=== PATIENT | female | born 1975 | race Asian ===

== ENCOUNTER 2021-12-16 21:17 | Emergency (ER) | payer OTHER ==
[~2021-12-16] VITALS: Ht 149.9 cm; Wt 60.6 kg
--- NOTE | 2021-12-16 21:20 | PHYS DOC ---
General Adult HPI: HPI: ".. I was cutting... up herbs for some chicken soup... Lemon grass.. about 10 other... it a chicken soup used for women after so they can get strong again.. and got my Lt thumb..." Patient is a 46 year old female originally from [facility].. who presents with above hx and complaints of laceration of left thumb. [place] been [place]. Patient does not remember her last tetanus. Patient has caused a 3 cm C-shaped flap on the dorsal side of left thumb. Extensor tendon is exposed. But appears to be functioning. Distal sensation appears to be intact. Patient is right-hand dominant. Patient is normally healthy for vaccinations. No recent travel. Pt. follows with Adam Zamora. Patient [id number] Review of Systems: Review of Systems: Constitutional: Denies fever or chills Eyes: Denies change in visual acuity HENT: Denies nasal congestion or sore throat Respiratory: Denies cough or shortness of breath Cardiovascular: Denies chest pain or edema GI: Denies abdominal pain, nausea, vomiting, bloody stools or diarrhea : Denies dysuria Musculoskeletal: Denies back pain or joint pain Integument: Denies rash, complains of laceration left thumb Neurologic: Denies headache, focal weakness or sensory changes Endocrine: Denies polyuria or polydipsia Lymphatic: Denies swollen glands Psychiatric: Denies depression or anxiety Family History: Family History: Noncontributory to presentation Current Medications: Current Meds: See nursing for home meds Allergies: Allergies: No known drug allergies Physical Exam: PE: Constitutional: Well developed, well nourished, no acute distress, non-toxic appearance. [] HENT: Normocephalic, atraumatic, bilateral external ears normal, oropharynx moist, no oral exudates, nose normal. [] Eyes: PERRLA, EOMI, conjunctiva normal, no discharge. [] Neck: Normal range of motion, no tenderness, supple, no stridor. [] Cardiovascular:Heart rate regular rhythm, no murmur [] Lungs & Thorax: Bilateral breath sounds clear to auscultation [] Abdomen: Bowel sounds normal, soft, no tenderness, no masses, no pulsatile masses. [] Skin: Warm, dry, no erythema, no rash. [] Laceration left thumb as per HPI Back: No tenderness, no CVA tenderness. [] Extremities: No tenderness, no cyanosis, no clubbing, ROM intact, no edema. [] Neurologic: Alert and oriented X 3, normal motor function, normal sensory function, no focal deficits noted. [] Psychologic: Affect normal, judgement normal, mood normal. [] EKG: EKG: [] Radiology/Procedures: Radiology/Procedures: [] Heart Score: C/O Chest Pain: N/A Risk Factors: Risk Factors: DM, Current or recent (<one month) smoker, HTN, HLP, family histo ry of CAD, obesity. Risk Scores: Score 0 - 3: 2.5% MACE over next 6 weeks - Discharge Home Score 4 - 6: 20.3% MACE over next 6 weeks - Admit for Clinical Observation Score 7 - 10: 72.7% MACE over next 6 weeks - Early Invasive Strategies Course & Med Decision Making: Course & Med Decision Making Pertinent Labs and Imaging studies reviewed. (See chart for details) Procedure note-3 cm flap laceration left thumb-thumb cleaned with normal saline. Betadine applied. Injected them with 2% lidocaine along suture line as well as thumb base.. Irrigated laceration range of motion. Normal saline. Closed laceration with 8 simple-4 0 Vicryl sutures. Antibiotic ointment applied. Dressing applied. Patient keep laceration clean and dry. May wear current dressing for 3 days if it does not get wet. Follow-up primary care. If dressing comes wet must remove dressing immediately. Once this dressing is removed apply Polysporin 4 times a day until sutures fall out. Take Keflex 500 mg 3 times a day.x 7 days after completing Keflex take Diflucan 100 mg daily for 3 days. Monitor closely for infection. Follow-up primary care. Return if any concerns. Patient warned that flap skin tear somewhat avascular may l have lost of tissue. Impression: 1. Accidental laceration left thumb-3 cm flap laceration [] Dragon Disclaimer: Dragon Disclaimer: This electronic medical record was generated, in whole or in part, using a voice recognition dictation system. Departure Departure: Referrals: ADAM ZAMORA MD (PCP) Scripts Fluconazole (DIFLUCAN) 100 Mg Tablet 100 MG PO DAILY for post antibioticv keflex for 3 Days, #3 TAB Prov: GRAZYNA LOPEZ MD 12/16/21 Cephalexin (KEFLEX) 500 Mg Capsule 500 MG PO TID for lacertion for 7 Days, #21 CAP Prov: GRAZYNA LOPEZ MD 12/16/21 John Disclaimer This chart was dictated in whole or in part using Voice Recognition software in a busy, high-work load, and often noisy Emergency Department environment. It may contain unintended and wholly unrecognized errors or omissions. Dragon Disclaimer This chart was dictated in whole or in part using Voice Recognition software in a busy, high-work load, and often noisy Emergency Department environment. It may contain unintended and wholly unrecognized errors or omissions. GRAZYNA LOPEZ MD Dec 16, 2021 21:20
[2021-12-16 21:28] VITALS: BP 130/75
[2021-12-16] MEDS ORDERED: LIDOCAINE 2% 20 ML VIAL. IJ ONE (21:30)
[2021-12-16] MEDS ORDERED: MUPIROCIN 2% TOPICAL OINTMENT 22GM TUBE. TP ONE (21:32)
[2021-12-16] MEDS ORDERED: DIPHTH,PERTUSS(ACELL),TET TOX 0.5 ML DISP.SYRIN. VAX IM ONE (21:45)
[2021-12-16] MEDS ORDERED: MUPIROCIN 2% TOPICAL OINTMENT 22GM TUBE. TP SCH (21:45)
[2021-12-16] MEDS ORDERED: cefTRIAXone SODIUM 1 GM VIAL ONE (22:07)
[2021-12-16] MEDS ORDERED: cefTRIAXone IM 1 GM VIAL IM ONE (22:15)
[2021-12-16] MEDS ORDERED: CEPH500C PO (22:21)
[2021-12-16] MEDS ORDERED: FLUC100T7 PO (22:38)
== END 2021-12-16 22:37 | disposition home or self-care (01) ==
LOC: ER 21:17 → EDBD 21:17 → ER 22:37
DX: S61.012A Laceration without foreign body of left thumb without damage to nail, initial encounter (principal); W26.8XXA Contact with other sharp object(s), not elsewhere classified, initial encounter; Y93.89 Activity, other specified; Y92.89 Other specified places as the place of occurrence of the external cause; Y99.8 Other external cause status
CPT/HCPCS: 12002; 90471; 90715; 96372; 99284; J0696; J2001